=== PATIENT | male | born 1995 | race Caucasian/White ===

== ENCOUNTER 2016-11-18 11:05 | Emergency (ER) | payer OTHER ==
--- NOTE | 2016-11-18 14:03 | ED CLINICAL REPORT ---
Clinical Report - Physicians/Mid Levels [facility] [address] [place] [place] [address] 11/18/2016 11:10 Patient: DENNYS WHITE Time Seen: 11:41; initial patient contact. Arrived- By private vehicle. Historian- patient. HISTORY OF PRESENT ILLNESS Chief Complaint: INTOXICATED. Wants to enter detox program. Symptoms started today. Substances abused: Stimulants. Last drug use consisted of amphetamines less than 24 hours ago. No fever, chills, nausea, vomiting or agitation. No delusions, hallucinations or suicidal thoughts. He has had tremors and been confused and depressed. Not paranoid. The symptoms are described as moderate. No injuries noted. Similar symptoms previously: None. Recent medical care: Not recently seen/assessed. REVIEW OF SYSTEMS The patient has had weight loss. No headache, chest pain or palpitations. All systems otherwise negative, except as recorded above. SOCIAL HISTORY Current every day smoker. History of drug use: heroin, methamphetamines, marijuana. No alcohol use. ADDITIONAL NOTES The nursing notes have been reviewed with agreement regarding the chief complaint, PMH and patient medications and allergies. PHYSICAL EXAM Vital Signs: 11/18/2016 11:19 BP: 148/95. HR: 100. RR: 20. O2 saturation: 100%. Temp: 98.2 F. Have been reviewed. Hypertensive. Tachycardic. Respiratory rate normal. Temperature normal. Oxygen saturation normal. Appearance: Alert. Oriented X3. Anxious. ENT: Dry mucous membranes present. Pharynx normal. CVS: Normal heart rate and rhythm. Heart sounds normal. Respiratory: No respiratory distress. Breath sounds normal. Skin: Skin warm and dry. Normal skin color. Neuro: Alert. Oriented X 3. Mood/affect normal. Speech normal. LABS, X-RAYS, AND EKG Laboratory Tests: Urine Drug Screen: (NICOLA: 11/18/2016 12:50) ( MsgRcvd 11/18/2016 13:41) Final results Test Result Flag Units (Reference) AMPHETAMINE/METHAMPHETAMINE POSITIVE H (NEGATIVE) BARBITURATE NEGATIVE (NEGATIVE) BENZODIAZEPINE NEGATIVE (NEGATIVE) CANNABINOID POSITIVE H (NEGATIVE) COCAINE NEGATIVE (NEGATIVE) ECSTASY POSITIVE H (NEGATIVE) METHADONE NEGATIVE (NEGATIVE) OPIATE POSITIVE H (NEGATIVE) The urine drug screen is a qualitative screening test fordrug overdose and abuse. All screen results should beconsidered as presumptive.Drugs screened for are as follows:BenzodiazepinesCocaineAmphetamines/MetamphetaminesTHC (Tetrahydrocannabinol)OpiatesBarbituratesEcstasyMethadonePositive results are unconfirmed. For confirmation, notifythe lab for the specimen to be sent to the reference lab.All confirmations must be performed by a differentmethodology.The ingestion of natural herbal and plant productscontaining Ephedra/Ephedra metabolites can produce in urineone or more substances capable of cross reacting withamphetamine/methamphetamine immunoassays. These testsprovide a preliminary result only. A more specificalternative chemical method must be used to obtain aconfirmed analytical result. . PROGRESS AND PROCEDURES Disposition: Discharged home in good condition. Condition: good. CLINICAL IMPRESSION Chronic substance abuse- methamphetamines with intoxication. INSTRUCTIONS (Seek professional help for substance abuse, it is not too late!). Your Current Medications: CONTINUE TAKING THE FOLLOWING MEDICATIONS: None*. Follow-up: Follow up with your doctor in about two days. Call for an appointment. Screening today revealed the patient's blood pressure to be in the pre-hypertensive range. The patient should follow up with a primary care provider for blood pressure management. (Electronically signed by Javed Rivera Dr. 11/20/2016 5:25)
--- NOTE | 2016-11-18 14:03 | ED CLINICAL REPORT ---
Clinical Report - Physicians/Mid Levels [facility] [address] [place] [place] [address] 11/18/2016 11:10 Patient: DENNYS WHITE Time Seen: 11:41; initial patient contact. Arrived- By private vehicle. Historian- patient. HISTORY OF PRESENT ILLNESS Chief Complaint: INTOXICATED. Wants to enter detox program. Symptoms started today. Substances abused: Stimulants. Last drug use consisted of amphetamines less than 24 hours ago. No fever, chills, nausea, vomiting or agitation. No delusions, hallucinations or suicidal thoughts. He has had tremors and been confused and depressed. Not paranoid. The symptoms are described as moderate. No injuries noted. Similar symptoms previously: None. Recent medical care: Not recently seen/assessed. REVIEW OF SYSTEMS The patient has had weight loss. No headache, chest pain or palpitations. All systems otherwise negative, except as recorded above. SOCIAL HISTORY Current every day smoker. History of drug use: heroin, methamphetamines, marijuana. No alcohol use. ADDITIONAL NOTES The nursing notes have been reviewed with agreement regarding the chief complaint, PMH and patient medications and allergies. PHYSICAL EXAM Vital Signs: 11/18/2016 11:19 BP: 148/95. HR: 100. RR: 20. O2 saturation: 100%. Temp: 98.2 F. Have been reviewed. Hypertensive. Tachycardic. Respiratory rate normal. Temperature normal. Oxygen saturation normal. Appearance: Alert. Oriented X3. Anxious. ENT: Dry mucous membranes present. Pharynx normal. CVS: Normal heart rate and rhythm. Heart sounds normal. Respiratory: No respiratory distress. Breath sounds normal. Skin: Skin warm and dry. Normal skin color. Neuro: Alert. Oriented X 3. Mood/affect normal. Speech normal. LABS, X-RAYS, AND EKG Laboratory Tests: Urine Drug Screen: (NICOLA: 11/18/2016 12:50) ( MsgRcvd 11/18/2016 13:41) Final results Test Result Flag Units (Reference) AMPHETAMINE/METHAMPHETAMINE POSITIVE H (NEGATIVE) BARBITURATE NEGATIVE (NEGATIVE) BENZODIAZEPINE NEGATIVE (NEGATIVE) CANNABINOID POSITIVE H (NEGATIVE) COCAINE NEGATIVE (NEGATIVE) ECSTASY POSITIVE H (NEGATIVE) METHADONE NEGATIVE (NEGATIVE) OPIATE POSITIVE H (NEGATIVE) The urine drug screen is a qualitative screening test fordrug overdose and abuse. All screen results should beconsidered as presumptive.Drugs screened for are as follows:BenzodiazepinesCocaineAmphetamines/MetamphetaminesTHC (Tetrahydrocannabinol)OpiatesBarbituratesEcstasyMethadonePositive results are unconfirmed. For confirmation, notifythe lab for the specimen to be sent to the reference lab.All confirmations must be performed by a differentmethodology.The ingestion of natural herbal and plant productscontaining Ephedra/Ephedra metabolites can produce in urineone or more substances capable of cross reacting withamphetamine/methamphetamine immunoassays. These testsprovide a preliminary result only. A more specificalternative chemical method must be used to obtain aconfirmed analytical result. . PROGRESS AND PROCEDURES Disposition: Discharged home in good condition. Condition: good. CLINICAL IMPRESSION Chronic substance abuse- methamphetamines with intoxication. INSTRUCTIONS (Seek professional help for substance abuse, it is not too late!). Your Current Medications: CONTINUE TAKING THE FOLLOWING MEDICATIONS: None*. Follow-up: Follow up with your doctor in about two days. Call for an appointment. Screening today revealed the patient's blood pressure to be in the pre-hypertensive range. The patient should follow up with a primary care provider for blood pressure management. (Electronically signed by Javed Rivera Dr. 11/20/2016 5:25)
--- NOTE | 2016-11-18 14:03 | ED ORDER SUMMARY ---
..... Patient: DENNYS WHITE OrderSheet [facility] VisitID: [id number] [address] [place] [address] 21y, M Registration Date/Time: 11/18/2016 ORDER SHEET Weight: 74.8 kg (stated) Allergies: No Known Drug Allergy GENERAL ORDERS: Urine Drug Screen Urgent (12:10 11/18/2016 Valentín Washington) (Ack 12:10 Nurisrjose) (12:) MEDICATION ORDERS: IV FLUIDS: ORDER SHEET NOTES: [Electronically signed by Tiffany Epperson R.N. (21:59 11/18/2016)] [Electronically signed by Javed Rivera Dr. (05:25 11/20/2016)] [Electronically locked/signed by Tiffany Epperson R.N. (:59 11/18/2016)]
--- NOTE | 2016-11-18 14:03 | ED NURSING NOTES ---
Clinical Report - Nurses [facility] [address] [place] [address] 11/18/2016 11:10 Patient: DENNYS WHITE TRIAGE Triage time 11:19. Acuity: LEVEL 3. Chief Complaint: ALTERED MENTAL STATUS. --11:29 Tiffany Epperson R.N. 11:19 11/18/16. BP: 148/95. HR: 100. RR: 20. O2 saturation: 100% on room air. Temp: 98.2 F. --11:29 Tiffany Epperson R.N. Weight: 74.8 kg stated. Height/Length: 74 inches Per Patient. BMI: 21.2. --11:28 Tiffany Epperson R.N. Medications None. --11: Tiffany Epperson R.N. Allergies No Known Drug Allergy. --11:23 Tiffany Epperson R.N. History Arrived by private vehicle. Historian: patient. Accompanied by family and mother. ( PATIENT RELAPSED ON METH AND STATES HE HAS BEEN USING AND HAS BEEN UP FOR 5 DAYS). Patient was last known well (5 DAYS). He was found unresponsive. Recent heroin, methamphetamines and marijuana use reported by patient. He has had fatigue, difficulty breathing and chest pain. PAST MEDICAL HX: Immunizations: up-to-date. SURGERY HX: No history of previous surgery. SOCIAL HX: Current every day light tobacco smoker (cigarette). Alcohol use. History of drug use: heroin, methamphetamines, marijuana. No infectious disease exposure. SELF HARM ASSESSMENT: A self harm assessment was performed. The patient answered "yes" to the question "Have you recently felt down, depressed, or hopeless?", "Have you noticed less interest or pleasure in doing things?" and "Do you have thoughts of harming or killing yourself?" and "no" to the question "Are you here because you tried to hurt yourself?", "Have you ever tried to hurt yourself before today?", "Have you recently had thoughts about harming or killing others?" and "Do you have any dangerous items in your possession?". The family reported the patient's behavior as agitated and restless. In the ED the patient has been restless and anxious. Family at bedside. He was placed in a safe room. Clothes and valuables were removed and given to the family. FALL RISK ASSESSMENT: Fall risk assessment completed. No fall risk identified. --11:29 Tiffany Epperson R.N. PROBLEMS: Drug Addiction. --11:24 Tiffany Epperson R.N. Interventions ID band on patient. To treatment room. --11:29 Tiffany Epperson R.N. PHYSICAL ASSESSMENT 11:30 11/18/16. GENERAL / NEURO / PSYCH: Alert. Oriented X 4. Speech within normal limits. Patient appears unkempt. RESPIRATORY: Respirations not labored. Breath sounds within normal limits. CVS: Capillary refill less than 2 seconds. GI / : Abdomen soft and nontender. SKIN: ( SCABS FROM PICKING). Skin breakdown noted. --11:30 Tiffany Epperson R.N. NURSING PROGRESS NOTES 11:30 11/18/16. Patient gowned. Reassurance given to the parent(s). Call light placed in reach. Side rails up x 1. Bed placed in lowest position. Brakes of bed on. Patient ready for evaluation- chart flagged. --11:30 Tiffany Epperson R.N. 13:54 11/18/16. ( PATIENT STATES HE FELT DIZZY WHEN HE GOT UP). --13:54 Tiffany Epperson R.N. 13:53 11/18/16. BP: 131/79 (regular adult cuff) taken on the right arm, while sitting. HR: 86 (regular, normal rate and strong). RR: 16. O2 saturation: 100% on room air. --13:54 Tiffany Epperson R.N. DISPOSITION / DISCHARGE No learning barriers present. Discharge instructions provided and reviewed with the patient and parent. Reviewed referrals. Reviewed need to stop smoking- provided smoking cessation counseling. Patient and family verbalized understanding. Written instructions provided in Swedish. ( pt enc to continue to attempt to get in to a drug rehab. Mom at bedside, supportive with pts care and drug rehab. pt dc only by this RN). The patient was discharged by the physician. He was discharged home and accompanied by parent. He left the Emergency Department ambulatory and via private vehicle. Family member driving. --14:28 Chaim Syed R.N. 14:22 11/18/16. BP: 131/79. HR: 92. RR: 17. O2 saturation: 97%. Temp: 98.3 F. Pain level now 0/10. --14:28 Chaim Syed R.N. Locked/Released at 11/18/2016 21:59 by Tiffany Epperson R.N.
--- NOTE | 2016-11-18 14:03 | ED ORDER SUMMARY ---
..... Patient: DENNYS WHITE OrderSheet [facility] VisitID: [id number] [address] [place] [address] 21y, M Registration Date/Time: 11/18/2016 ORDER SHEET Weight: 74.8 kg (stated) Allergies: No Known Drug Allergy GENERAL ORDERS: Urine Drug Screen Urgent (12:10 11/18/2016 Valentín Washington) (Ack 12:10 Nurisrjose) (12:) MEDICATION ORDERS: IV FLUIDS: ORDER SHEET NOTES: [Electronically signed by Tiffany Epperson R.N. (21:59 11/18/2016)] [Electronically signed by Javed Rivera Dr. (05:25 11/20/2016)] [Electronically locked/signed by Tiffany Epperson R.N. (:59 11/18/2016)]
--- NOTE | 2016-11-20 05:26 | ED DISCHARGE INSTRUCTIONS ---
Patient: DENNYS WHITE General Instructions [facility] VisitID: [id number] [place] [address] 21y, M Registration Date/Time: 11/18/2016 Chronic substance abuse- methamphetamines with intoxication. INSTRUCTIONS (Seek professional help for substance abuse, it is not too late!). Your Current Medications: CONTINUE TAKING THE FOLLOWING MEDICATIONS: None*. Follow-up: Follow up with your doctor in about two days. Call for an appointment. Screening today revealed the patient's blood pressure to be in the pre-hypertensive range. The patient should follow up with a primary care provider for blood pressure management. ADDITIONAL INFORMATION Drug Abuse Use and abuse of such drugs as marijuana, amphetamines (speed, crank), cocaine, heroin or prescription pain medicines (Vicodin, codeine), sedatives and sleeping pills (Valium, Klonopin), PCP, mescaline and LSD may lead to addiction or dependence. Once this occurs, you are at greater risk for any of the following: Craving for the drug and unable to stop using the drug even though you think you want to stop (psychological dependence) Drug withdrawal symptoms if you stop taking the drug (physical dependence) Loss of your job or your family Arrest, conviction and group home sentence for possession of an illegal substance or for driving under the influence of such a substance Accidental injuries to yourself or others while you are under the influence of the drug (in a car or at home). HIV infection (much greater risk if you use IV drugs) Other sexually transmitted diseases (herpes, chlamydia, gonorrhea and others) Severe and fatal infection of the heart valves (if you use IV drugs) Stroke, heart attack, hepatitis B or C, kidney failure from overdose Home Care: Admit you have a drug problem. Ask for help from your family and close friends. Seek professional help. This could be in the form of individual psychotherapy or counseling or an outpatient, inpatient, or residential drug treatment program. Join a self-help group for drug abuse. Avoid friends who abuse drugs themselves or tempt you to continue abusing drugs. Eat a balanced diet and begin a regular exercise program. Follow Up with your doctor or as advised by our staff. Contact one of the resources below for help. National [place] on Alcoholism and Drug Dependence www.ncadd.org 882-768-RZOL Narcotics Anonymous www.na.org 391-837-7071 National Alcohol and Substance Abuse Information Center (for referral to treatment programs) www.addictionSeniorSource.infoBizz 938-830-9623 Get Prompt Medical Attention if any of the following occur: Agitation, anxiety, unable to sleep Unintended weight loss (more than 10 to 15 pounds over 3 months) Seizure Chest pain Fever of 100.4F (38C) or higher, or as directed by your healthcare provider Excess drowsiness or inability to be awakened Shortness of breath Slow breathing under 8 breaths per minute Cough with colored sputum Redness, swelling or tenderness at an injection site You have been given the following additional information: Drug Abuse (Electronically signed by Javed Rivera Dr. 11/20/2016 5:25)
--- NOTE | 2016-11-20 05:26 | ED MAR SUMMARY ---
..... Medication Administration Record [facility] [address] [place], [place] [id number] Patient: DENNYS WHITE Visit ID: [id number] 21y, M Weight: 74.8 kg Height/Length: 74 in BMI: 21.2 ALLERGIES: No Known Drug Allergy
--- NOTE | 2016-11-20 05:26 | ED DISCHARGE INSTRUCTIONS ---
Patient: DENNYS WHITE General Instructions [facility] VisitID: [id number] [place] [address] 21y, M Registration Date/Time: 11/18/2016 Chronic substance abuse- methamphetamines with intoxication. INSTRUCTIONS (Seek professional help for substance abuse, it is not too late!). Your Current Medications: CONTINUE TAKING THE FOLLOWING MEDICATIONS: None*. Follow-up: Follow up with your doctor in about two days. Call for an appointment. Screening today revealed the patient's blood pressure to be in the pre-hypertensive range. The patient should follow up with a primary care provider for blood pressure management. ADDITIONAL INFORMATION Drug Abuse Use and abuse of such drugs as marijuana, amphetamines (speed, crank), cocaine, heroin or prescription pain medicines (Vicodin, codeine), sedatives and sleeping pills (Valium, Klonopin), PCP, mescaline and LSD may lead to addiction or dependence. Once this occurs, you are at greater risk for any of the following: Craving for the drug and unable to stop using the drug even though you think you want to stop (psychological dependence) Drug withdrawal symptoms if you stop taking the drug (physical dependence) Loss of your job or your family Arrest, conviction and shelter sentence for possession of an illegal substance or for driving under the influence of such a substance Accidental injuries to yourself or others while you are under the influence of the drug (in a car or at home). HIV infection (much greater risk if you use IV drugs) Other sexually transmitted diseases (herpes, chlamydia, gonorrhea and others) Severe and fatal infection of the heart valves (if you use IV drugs) Stroke, heart attack, hepatitis B or C, kidney failure from overdose Home Care: Admit you have a drug problem. Ask for help from your family and close friends. Seek professional help. This could be in the form of individual psychotherapy or counseling or an outpatient, inpatient, or residential drug treatment program. Join a self-help group for drug abuse. Avoid friends who abuse drugs themselves or tempt you to continue abusing drugs. Eat a balanced diet and begin a regular exercise program. Follow Up with your doctor or as advised by our staff. Contact one of the resources below for help. National [place] on Alcoholism and Drug Dependence www.ncadd.org 015-384-GEGK Narcotics Anonymous www.na.org 746-151-3880 National Alcohol and Substance Abuse Information Center (for referral to treatment programs) www.addictionDefiniens.[employer] 210-441-7867 Get Prompt Medical Attention if any of the following occur: Agitation, anxiety, unable to sleep Unintended weight loss (more than 10 to 15 pounds over 3 months) Seizure Chest pain Fever of 100.4F (38C) or higher, or as directed by your healthcare provider Excess drowsiness or inability to be awakened Shortness of breath Slow breathing under 8 breaths per minute Cough with colored sputum Redness, swelling or tenderness at an injection site You have been given the following additional information: Drug Abuse (Electronically signed by Javed Rivera Dr. 11/20/2016 5:25)
--- NOTE | 2016-11-20 05:26 | ED MED RECONCILIATION SUMMARY ---
Patient: DENNYS WHITE Medication Reconciliation Report [facility] VisitID: [id number] [address] [place] [address] 21y, M Registration Date/Time: 11/18/2016 Weight: 74.8 kg Height/Length: 74 in. BMI: 21.2 ALLERGIES: No Known Drug Allergy The patient's Home Medications are listed below: NONE. The source(s) of the original Home Medication information: Not obtained. The following Medications were given to the patient in the Emergency Department: None. The following Medications were prescribed to the patient: None.
--- NOTE | 2016-11-20 05:26 | ED MED RECONCILIATION SUMMARY ---
Patient: DENNYS WHITE Medication Reconciliation Report [facility] VisitID: [id number] [address] [place] [address] 21y, M Registration Date/Time: 11/18/2016 Weight: 74.8 kg Height/Length: 74 in. BMI: 21.2 ALLERGIES: No Known Drug Allergy The patient's Home Medications are listed below: NONE. The source(s) of the original Home Medication information: Not obtained. The following Medications were given to the patient in the Emergency Department: None. The following Medications were prescribed to the patient: None.
--- NOTE | 2016-11-20 05:26 | ED MAR SUMMARY ---
..... Medication Administration Record [facility] [address] [place], [place] [id number] Patient: DENNYS WHITE Visit ID: [id number] 21y, M Weight: 74.8 kg Height/Length: 74 in BMI: 21.2 ALLERGIES: No Known Drug Allergy
== END 2016-11-18 14:22 | disposition home or self-care (01) ==
LOC: ED SRH 11:05
DX: F15.129 Other stimulant abuse with intoxication, unspecified (principal); F17.210 Nicotine dependence, cigarettes, uncomplicated
CPT/HCPCS: 92760; 92761; 92762; 92763; 92764; 92765; 92766; 92767